=== PATIENT | female | born 1965 | race African-American/Black ===

== ENCOUNTER 2017-10-20 12:19 | Emergency (ER) | payer SELFPAY ==
[~2017-10-20] VITALS: Ht 170.2 cm; Wt 88.9 kg
[2017-10-20 14:09] LABS: BASOPHIL (%) 0.7 % (0-1); EOSINOPHIL (%) 2.3 % (0-5); EOSINOPHIL COUNT 0.1 K/uL (0-0.3); HEMOGLOBIN 14.9 G/DL (11.9-15.5); IMMATURE GRANULOCYTE (%) 0.2 % (0.0-0.7); LYMPHOCYTE (%) 32.3 % (15-42); LYMPHOCYTE COUNT 1.8 K/uL (1.0-2.8); MCHC 33.9 G/DL (30.0-36.0); MCV 85.8 FL (83-99); MONOCYTE COUNT 0.4 K/uL (0-0.8); NEUTROPHIL (%) 57.5 % (45-76); NEUTROPHIL COUNT 3.2 K/uL (1.8-6.4); PLATELET COUNT 205 K/uL (156-360); RBC DIS.WIDTH-CV 12.9 % (11.8-14.6); RBC DIS.WIDTH-SD 40.9 % (39-53); RED BLOOD COUNT 5.13 M/uL (3.80-5.20); WHITE BLOOD COUNT 5.6 K/uL (4.1-10.2)
[2017-10-20 14:18] LABS: PTT 33.3 SEC (25-37)
[2017-10-20 14:19] LABS: ALBUMIN 4.3 g/dL (3.2-4.8)
[2017-10-20 14:20] LABS: CHLORIDE 107 mEq/L (99-109); SODIUM 141 mEq/L (136-147)
[2017-10-20 14:22] LABS: GLUCOSE 92 mg/dL (70-99); TOTAL PROTEIN 7.4 g/dL (6.4-8.3)
[2017-10-20 14:25] LABS: ALKALINE PHOSPHATASE 123 IU/L (3-129)
[2017-10-20 14:26] LABS: CREATININE 0.9 mg/dL (0.6-1.3); GFR ESTIMATE (CALCULATED) > 59 mL/min/
[2017-10-20 14:27] LABS: AST (GOT) 18 IU/L (2-34); DIRECT BILIRUBIN 0.4 mg/dL (0.0-0.3); UREA NITROGEN (BUN) 16 mg/dL (9-23)
[2017-10-20 14:29] LABS: ALT (GPT) 13 IU/L (3-49)
[2017-10-20 14:31] LABS: TROP-I INTERPRETATION NEGATIVE; TROPONIN-I < 0.01 ng/mL (0.0-0.30)
[2017-10-20 14:43] LABS: ERTH.SED.RATE 15 MM/HR (0-30)
[2017-10-20] MEDS ORDERED: MICROZIDE12.5 M1 PO (18:04)
[2017-10-20 20:16] VITALS: BP 198/94
== END 2017-10-20 20:26 | disposition home or self-care (01) ==
LOC: EME 12:19
PROVIDERS: Emergency Medicine
DX: H54.61 Unqualified visual loss, right eye, normal vision left eye (principal); H35.60 Retinal hemorrhage, unspecified eye; I10 Essential (primary) hypertension; Z86.73 Personal history of transient ischemic attack (TIA), and cerebral infarction without residual deficits
CPT/HCPCS: 70450; 70496; 70498; 80048; 80076; 83880; 84484; 85025; 85610; 85651; 85730; 99281; 99285; J0360